=== PATIENT | female | born 1965 | race Caucasian/White ===

== ENCOUNTER → 2018-09-05 17:45 | Outpatient (CLI) | payer OTHER, MEDICAID, SELFPAY ==
--- NOTE | 2018-09-05 17:47 | DI.RAD.S_ITS ---
PROCEDURE: XR CHEST 2V INDICATIONS: COUGH TECHNIQUE: 2 views of the chest were acquired. COMPARISON: [facility], CHEST 1 VIEW, 05/08/2017, 0:43. [facility], CHEST 2 VIEW, 06/21/2015, 15:14. FINDINGS: Surgical changes and devices: None. Lungs and pleura: Lungs are clear. No pleural effusions or pneumothorax. The lungs are hyperexpanded, with flattening of the hemidiaphragms seen. Mediastinum: Mediastinal contours are normal. Heart size is normal. Bones and chest wall: No suspicious bony abnormalities. There is S-shaped scoliosis. Age-appropriate bony degenerative changes are seen. Soft tissues appear unremarkable. IMPRESSION: Hyperexpanded lungs, without an acute cardiopulmonary process identified. If there is clinical concern for a developing pulmonary process, a short-term followup chest series (with PA and lateral views, performed in deep inspiration) is suggested for further evaluation. Dictated by: Thomas Warner M.D. on 09/05/2018 at 17:05 Approved by: Thomas Warner M.D. on 09/05/2018 at 17:05
== END ==
PROVIDERS: PCP Nurse Practitioner Family; Visit Provider Physician Assistant
DX: R05 Cough (principal)
CPT/HCPCS: 71046

== ENCOUNTER → 2019-04-11 16:34 | Outpatient (CLI) | payer OTHER, SELFPAY ==
--- NOTE | 2019-04-11 | DI.RAD.S_ITS ---
PROCEDURE: XR TOE LT MIN 2V INDICATIONS: SPRAIN TECHNIQUE: 3 views of the second toe(s) acquired. COMPARISON: None. FINDINGS: Bones: No fractures or dislocations. No suspicious bony lesions. Soft tissues: No suspicious soft tissue densities. IMPRESSION: No fracture or dislocation. Dictated by: Marita Tejada M.D. on 04/11/2019 at 17:37 Approved by: Marita Tejada M.D. on 04/11/2019 at 17:39
== END ==
PROVIDERS: PCP Nurse Practitioner Family; Visit Provider Nurse Practitioner Family
DX: S93.505D Unspecified sprain of left lesser toe(s), subsequent encounter (principal); X58.XXXD Exposure to other specified factors, subsequent encounter
CPT/HCPCS: 73660